=== PATIENT | male | born 1985 | race Caucasian/White ===

== ENCOUNTER → 2018-11-12 | Outpatient (CLI) | payer BC ==
[~2018-11-12] MED LIST: CLAR500; CYCL10 PO; HYDACE5 PO; IBUP800; META400 PO; Norco 5-325 Ta1 EACH PO; OMEP40CA12 PO; RANI150 PO; RXMETA400 PO
[2018-11-12 14:13] LABS: BASOPHILS ABSOLUTE AUTO 0.02 K/mm3 (0.00-0.23); BASOPHILS PERCENT AUTO 0 % (0-2); EOSINOPHILS ABSOLUTE AUTO 0.08 K/mm3 (0.00-0.68); EOSINOPHILS PERCENT AUTO 1 % (0-6); Hematocrit 44.7 % (37.0-53.0); IMMATURE GRAN ABSOLUTE AUTO 0.02 K/mm3 (0.00-0.10); IMMATURE GRAN PERCENT AUTO 0 % (0-1); LYMPHOCYTES ABSOLUTE AUTO 2.01 K/mm3 (0.84-5.20); LYMPHOCYTES PERCENT AUTO 32 % (21-46); MONOCYTES PERCENT AUTO 8 % (4-13); Mean Corpuscular HGB 29.8 pg (26.0-34.0); Mean Corpuscular HGB Conc 33.6 g/dL (31.5-36.5); Mean Corpuscular Volume 89 fL (80-100); Mean Platelet Volume 9.7 fL (9.1-12.4); NEUTROPHILS PERCENT AUTO 58 % (41-73); Platelet Count 260 K/mm3 (150-400); RDW Standard Deviation 38.4 fL (35.1-46.3); Red Blood Cell Count 5.04 M/mm3 (4.30-5.90); White Blood Cell Count 6.23 K/mm3 (4.00-11.30)
[2018-11-12 14:23] LABS: Anion Gap 5 mmol/L (6-16); Blood Urea Nitrogen 14 mg/dL (8-24); Bun/Creatinine Ratio 16.2 (12.0-20.0); CO2, Blood 29 mmol/L (21-32); Calcium, Blood 9.1 mg/dL (8.5-10.1); Chloride, Blood 108 mmol/L (98-108); Creatinine, Blood 0.87 mg/dL (0.60-1.20); Glomerular Filtration Rate >60 (60-); Glucose, Blood 93 mg/dL (70-99); Sodium, Blood 142 mmol/L (136-145)
== END | disposition home or self-care (01) ==
LOC: LAB SHORT 11:55 → LAB 11:55
PROVIDERS: Hospitalist
DX: R31.9 Hematuria, unspecified (principal)
CPT/HCPCS: 80048; 85025

== ENCOUNTER 2019-01-14 20:11 | Emergency (ER) | payer BC ==
[~2019-01-14] VITALS: Ht 182.9 cm; Wt 95.2 kg
[~2019-01-14 20:11] MED LIST changes: -CYCL10 PO; -Norco 5-325 Ta1 EACH PO
[2019-01-14] MEDS ORDERED: CYCL10 PO (22:14)
[2019-01-14] MEDS ORDERED: Norco 5-325 Ta1 EACH PO (22:14)
== END 2019-01-14 22:23 | disposition home or self-care (01) ==
LOC: ER 20:11
DX: M62.838 Other muscle spasm (principal); R68.84 Jaw pain; Z88.0 Allergy status to penicillin; F17.220 Nicotine dependence, chewing tobacco, uncomplicated; Y04.2XXA Assault by strike against or bumped into by another person, initial encounter
CPT/HCPCS: 72040; 99283-25; A9270-GY

== ENCOUNTER 2023-10-17 06:09 | Emergency (ER) | payer OTHER ==
[~2023-10-17] VITALS: Ht 182.9 cm; Wt 88.5 kg
[~2023-10-17 06:09] MED LIST changes: +CYCL10 PO; +Norco 5-325 Ta1 EACH PO
[2023-10-17 10:27] VITALS: BP 148/89
[2023-10-17] MEDS ORDERED: Cyclobenzaprine HCl 10 MG Tab PO ONE (10:30)
[2023-10-17] MEDS ORDERED: Acetaminophen 500 MG Tab PO ONE (10:30)
[2023-10-17] MEDS ORDERED: Ketorolac Tromethamine 15mg Vial IM ONE (10:30)
[2023-10-17] MEDS ORDERED: CYCL10 PO (11:04)
[2023-10-17] MEDS ORDERED: NAPROXEN250 M1 PO (11:04)
== END 2023-10-17 11:14 | disposition home or self-care (01) ==
LOC: ER 06:09
DX: T14.8XXA Other injury of unspecified body region, initial encounter (principal); M62.830 Muscle spasm of back; W17.89XA Other fall from one level to another, initial encounter; Z88.0 Allergy status to penicillin
CPT/HCPCS: 72070; 72100; 96372; 99284-25; A9270; J1885